=== PATIENT | female | born 1940 | race Caucasian/White ===

== ENCOUNTER 2023-01-01 19:03 | Inpatient (IN) | payer MEDICARE ==
[~2023-01-01] VITALS: Ht 154.9 cm; Wt 53.6 kg
[2023-01-01] MEDS ORDERED: VANCOMYCIN IV 1,000 MG in IV DEXTROSE 5% 250 ML IV ONE (19:30)
[2023-01-01] MEDS ORDERED: CEFTRIAXONE 1 G in IV DEXTROSE 5% 50 ML IV ONE (19:30)
[2023-01-01] MEDS ORDERED: IV NORMAL SALINE 500 ML BAG IV ONE (19:30)
[2023-01-01] MEDS ORDERED: PHOS250T5 PO (19:35)
[2023-01-01] MEDS ORDERED: DICL1KIT14 TP (19:35)
[2023-01-01] MEDS ORDERED: DOCU100T2 PO (19:35)
[2023-01-01] MEDS ORDERED: GABA-536 PO (19:35)
[2023-01-01] MEDS ORDERED: MELA5TAB PO (19:35)
[2023-01-01] MEDS ORDERED: LOPE2TAB25 PO (19:35)
[2023-01-01] MEDS ORDERED: CEFTRIAXONE /D5W 50ML IVPB **ER PYXIS IV ONE (19:35)
[2023-01-01] MEDS ORDERED: ACET-2605 PO (19:35)
[2023-01-01] MEDS ORDERED: BIOT5TAB PO (19:35)
[2023-01-01] MEDS ORDERED: EZET10TA15 PO (19:35)
[2023-01-01] MEDS ORDERED: ONDA4TAB5 PO (19:35)
[2023-01-01] MEDS ORDERED: ACYC400T19 PO (19:35)
[2023-01-01] MEDS ORDERED: ASPI-833 PO (19:35)
[2023-01-01] MEDS ORDERED: BISA10SU61 RC (19:35)
[2023-01-01] MEDS ORDERED: GUAI100S69 PO (19:35)
[2023-01-01] MEDS ORDERED: CAPS1ADH8 TP (19:35)
[2023-01-01] MEDS ORDERED: MAGN400O6 PO (19:35)
[2023-01-01] MEDS ORDERED: AMAN100T PO (19:35)
[2023-01-01] MEDS ORDERED: CHOL500062 PO (19:35)
[2023-01-01] MEDS ORDERED: APIX5TAB PO (19:35)
[2023-01-01] MEDS ORDERED: PANT40TA49 PO (19:35)
[2023-01-01] MEDS ORDERED: VANCOMYCIN IV 200 ML ONE (19:35)
[2023-01-01 20:33] LABS: MEAN CORPUSCULAR HEMOGLOBIN 31.6 uug (24.7-32.8); MEAN CORPUSCULAR VOLUME 96.4 fL (75.5-95.3); PLATELET COUNT (AUTO) 252 K/uL (179-408)
[2023-01-01 20:41] LABS: CARBON DIOXIDE 28 mmol/L (21-32); CHLORIDE 100 mmol/L (98-107); GLUCOSE 104 mg/dL (74-106); UREA NITROGEN, BLOOD 16 mg/dL (7-18)
[2023-01-01 20:53] LABS: ALANINE AMINOTRANSFERASE 27 U/L (14-59); ALKALINE PHOSPHATASE 85 U/L (50-136); ASPARTATE AMINOTRANSFERASE 6 U/L (15-37); BILIRUBIN,DIRECT 0.1 mg/dL (0.0-0.2); BILIRUBIN,TOTAL 0.3 mg/dL (0.2-1.0); TOTAL PROTEIN, SERUM 8.6 g/dL (6.4-8.2)
[2023-01-01 21:36] LABS: *BILIRUBIN,URIN NEGATIVE (NEGATIVE); *BLOOD, URINE 2+ (NEGATIVE); *CLARITY,URINE SLIGHTLY CLOUDY (CLEAR); *COLOR,URINE YELLOW (YELLOW); *KETONES,URINE NEGATIVE (NEGATIVE); *UROBILINOGEN,URINE 0.2 E.U./dl (NORMAL); LEUKOCYTE ESTERASE ,URINE 2+ (NEGATIVE); NITRITE, URINE NEGATIVE (NEGATIVE); UGLUCOSE NEGATIVE (NEGATIVE)
[2023-01-01 22:01] LABS: BACTERIA,URINE MODERATE /HPF (NONE SEEN); WBC,URINE 50-80 /HPF (0-3)
[2023-01-01 22:02] LABS: SQUAMOUS EPITHELIAL CELL,UR FEW /HPF (NONE SEEN)
--- NOTE | 2023-01-01 22:22 | NUR ---
Called for panel call. Dr. Kim investigation specialist.
--- NOTE | 2023-01-01 23:50 | NUR ---
Called third floor and gave report to Ivette MUELLER.
[2023-01-02] MEDS ORDERED: ACETAMINOPHEN 325 MG TABLET PO PRN (00:45)
[2023-01-02] MEDS ORDERED: MORPHINE SULFATE 2 MG/1 ML DISP.SYRIN IV PRN (00:45)
[2023-01-02] MEDS ORDERED: ONDANSETRON 4 MG/2 ML VIAL IV PRN (00:45)
--- NOTE | 2023-01-02 01:00 | NUR ---
RECEIVED PATIENT VIA GURNEY FROM ER. UPON ARRIVAL TO FLOOR, PATIENT IS ALERT TO NAME AND KNOWS SHE IS IN THE HOSPITAL, BUT UNABLE TO GIVE DATE OR TIME. PATIENT IS PASSIVE WHEN OTHER QUESTIONS ARE ASKED. NO S/S OF ANY PAIN OR DISCOMFORT. NO RESP. DISTRESS NOTED. VS WNL. HEPLOCK INTACT AND PATENT, NOTED TO LEFT WRIST. OPEN WOUND NOTED TO RIGHT LOWER BACK. REPOSITIONED TO SIDE. PATIENT MADE COMFORTABLE IN BED. CALL LIGHT IN REACH. ALL NEEDS ATTENDED. WILL CONTINUE TO MONITOR AND ASSESS.
--- NOTE | 2023-01-02 01:12 | NUR ---
Transfered patient to third floor via gurney with belongings. AMI Steele made aware of patient's arrival.
--- NOTE | 2023-01-02 01:15 | NUR ---
PATIENT PLACED ON TELE, SR.
[2023-01-02 01:16] VITALS: BP 131/67
[2023-01-02 04:00] VITALS: BP 152/74
[2023-01-02] MEDS: PANTOPRAZOLE SODIUM 40 MG TABLET.DR PO SCH (06:11)
--- NOTE | 2023-01-02 06:12 | NUR ---
PATIENT ASLEEP IN BED. SLEPT WELL THROUGHOUT THE NIGHT. ON TELE SR.
[2023-01-02 06:45] LABS: MEAN CORPUSCULAR HEMOGLOBIN 31.3 uug (24.7-32.8); MEAN CORPUSCULAR VOLUME 96.1 fL (75.5-95.3); PLATELET COUNT (AUTO) 225 K/uL (179-408)
[2023-01-02] MEDS ORDERED: MAGNESIUM HYDROXIDE 30 ML LIQUID UDC PO PRN (07:00)
[2023-01-02 07:02] LABS: THYROID STIMULATING HORMONE 1.577 mIU/mL (0.358-3.740)
[2023-01-02 07:18] LABS: BILIRUBIN,TOTAL 0.2 mg/dL (0.2-1.0); CREATININE 0.9 mg/dL (0.6-1.3); MAGNESIUM 2.1 mg/dL (1.8-2.4); PHOSPHOROUS 3.2 mg/dL (2.5-4.9); POTASSIUM 3.7 mmol/L (3.5-5.1); TOTAL PROTEIN, SERUM 7.3 g/dL (6.4-8.2)
[2023-01-02] MEDS ORDERED: BIOTIN PO SCH (09:00)
[2023-01-02] MEDS: AMANTADINE HCL 100 MG CAPSULE PO SCH ×2 (09:34→18:02)
[2023-01-02] MEDS: CHOLECALCIFEROL 1,000 UNIT TABLET PO SCH (09:34)
[2023-01-02 11:53] VITALS: BP 152/63
[2023-01-02] MEDS ORDERED: GUAIFENESIN/DEXTROMETHORPHAN 5 ML UDC PO PRN (12:15)
--- NOTE | 2023-01-02 12:40 | NUR ---
WOUND CARE CONSULT: PT PRESENTS WITH RT UPPER BUTTOCK WOUND WITH REDNESS AND SMALL AMOUNT OF SEROPURULENT DRAINAGE, NO ODOR, PRESENT ON ADMISSION. RECOMMENDATIONS MADE FOR SKIN PROTECTION AND WOUND CARE UNTIL SEEN BY SURGICAL TEAM. DISCUSSED WITH NURSING STAFF. MD IN AGREEMENT WITH PLAN OF CARE.
[2023-01-02] MEDS: SODIUM HYPOCHLORITE 0.125% (QUARTER STRENGTH) 473 ML BOTTLE TP SCH (13:46)
[2023-01-02 15:39] VITALS: BP 161/68
[2023-01-02] MEDS: GLUCERNA SHAKE 237 ML CAN PO SCH (17:00)
--- NOTE | 2023-01-02 18:47 | NUR ---
pt alert and oriented. confused at times. in no acute distress noted. bedbound. right upper buttocks wound noted. wound care nurse consulted. new wound tx was ordered. RA saturating 96-97%. all needs attended. safety measure in placed.
[2023-01-02 18:54] VITALS: BP 143/91
--- NOTE | 2023-01-02 19:30 | NUR ---
Received patient in bed alert awake, able to make some needs known. tele monitor sinus rhythm at this time, complain of mild pain on left wrist IV site, ice pack place on site with help, BP elevated will medicate as ordered, cont to monitor.
[2023-01-02 20:16] VITALS: BP 155/61
[2023-01-02] MEDS: CEFTRIAXONE 1 G in IV DEXTROSE 5% 50 ML IV SCH (20:33)
[2023-01-02] MEDS: hydrALAZINE HCL 25 MG TABLET PO PRN (20:40)
[2023-01-02] MEDS: VANCOMYCIN IV 1,000 MG in IV DEXTROSE 5% 250 ML IV SCH (21:09)
[2023-01-03 00:12] VITALS: BP 122/53
[2023-01-03 04:20] VITALS: BP 159/68
--- NOTE | 2023-01-03 05:16 | NUR ---
Patient awake, no sob no chest pain, tele monitor sinus rhythm, no complain of pain at this time, patient iv line pulled out but accident, patient hard stick will get an order for midline in Am. cont to monitor.
[2023-01-03] MEDS: hydrALAZINE HCL 25 MG TABLET PO PRN ×2 (05:43→17:17)
[2023-01-03] MEDS: PANTOPRAZOLE SODIUM 40 MG TABLET.DR PO SCH (06:16)
--- NOTE | 2023-01-03 07:30 | NUR ---
pt is awake and confused and cooperative. No IV present at this time. I will follow up with attending to get a midline order for the patient. Patient is NSR on the monitor and her vital signs are stable.
[2023-01-03 08:00] VITALS: BP 138/71
[2023-01-03] MEDS: GLUCERNA SHAKE 237 ML CAN PO SCH ×2 (08:16→17:16)
[2023-01-03] MEDS: CHOLECALCIFEROL 1,000 UNIT TABLET PO SCH (08:16)
[2023-01-03] MEDS: AMANTADINE HCL 100 MG CAPSULE PO SCH ×2 (08:16→17:15)
[2023-01-03] MEDS: PROTEIN SUPPLEMENT (PROSTAT) 30 ML LIQUID PO SCH (08:17)
[2023-01-03] MEDS: SODIUM HYPOCHLORITE 0.125% (QUARTER STRENGTH) 473 ML BOTTLE TP SCH (08:18)
--- NOTE | 2023-01-03 09:30 | NUR ---
Dr Wolf notified about pt's HR in the 130s to low 140s. Medication order received.
[2023-01-03] MEDS ORDERED: LORAZEPAM 0.5 MG TABLET PO PRN (10:00)
[2023-01-03] MEDS ORDERED: GUAIFENESIN/DEXTROMETHORPHAN 5 ML UDC PO PRN (11:15)
[2023-01-03 11:44] VITALS: BP 139/74
[2023-01-03 16:31] VITALS: BP 154/84
[2023-01-03 19:52] VITALS: BP 142/81
[2023-01-03] MEDS: CEFTRIAXONE 1 G in IV DEXTROSE 5% 50 ML IV SCH (20:22)
[2023-01-03] MEDS: VANCOMYCIN IV 1,000 MG in IV DEXTROSE 5% 250 ML IV SCH (21:02)
[2023-01-04 00:01] VITALS: BP 144/78
[2023-01-04 04:20] VITALS: BP 141/74
--- NOTE | 2023-01-04 04:57 | NUR ---
Calm and comfortable. NSR to Sinus Tachy on Tele with the highest HR of 120s. No acute distress noted. IV intact and patent. All medications given as ordered. No adverse reaction noted from antibiotics. Wound dressing done. Kept clean and dry. All needs attended to and met. Safety precautions maintained.
[2023-01-04] MEDS: PANTOPRAZOLE SODIUM 40 MG TABLET.DR PO SCH (06:06)
[2023-01-04 07:15] LABS: HEMATOCRIT 39.1 % (31.2-41.9); MEAN CORPUSCULAR HEMOGLOBIN 31.4 uug (24.7-32.8); MEAN CORPUSCULAR VOLUME 95.2 fL (75.5-95.3); PLATELET COUNT (AUTO) 252 K/uL (179-408)
[2023-01-04 07:28] LABS: CREATININE 0.8 mg/dL (0.6-1.3); MAGNESIUM 1.7 mg/dL (1.8-2.4); PHOSPHOROUS 3.8 mg/dL (2.5-4.9); POTASSIUM 3.6 mmol/L (3.5-5.1)
[2023-01-04] MEDS: AMANTADINE HCL 100 MG CAPSULE PO SCH ×2 (08:11→17:26)
[2023-01-04] MEDS: PROTEIN SUPPLEMENT (PROSTAT) 30 ML LIQUID PO SCH (08:11)
[2023-01-04] MEDS: CHOLECALCIFEROL 1,000 UNIT TABLET PO SCH (08:11)
[2023-01-04] MEDS: SODIUM HYPOCHLORITE 0.125% (QUARTER STRENGTH) 473 ML BOTTLE TP SCH (08:12)
[2023-01-04] MEDS: GLUCERNA SHAKE 237 ML CAN PO SCH ×2 (08:12→17:26)
--- NOTE | 2023-01-04 10:15 | NUR ---
Just finished speaking with the patients daughter and she informed me that a table mate that she eats with at the assisted living facility was diagnosed with Covid. I have informed Dr Wolf and he ordered a rapid covid test which I have sent to the lab and awaiting results.
[2023-01-04 12:00] VITALS: BP 147/69
[2023-01-04] MEDS ORDERED: MAGNESIUM OXIDE 400 MG TABLET PO ONE (12:00)
[2023-01-04] MEDS: METOPROLOL TARTRATE 25 MG TABLET PO SCH ×2 (12:56→20:11)
[2023-01-04 16:09] VITALS: BP 136/71
[2023-01-04 20:00] VITALS: BP 136/65
[2023-01-04] MEDS: CEFTRIAXONE 1 G in IV DEXTROSE 5% 50 ML IV SCH (20:58)
[2023-01-04] MEDS: VANCOMYCIN IV 1,000 MG in IV DEXTROSE 5% 250 ML IV SCH (21:01)
[2023-01-05 04:00] VITALS: BP 122/81
[2023-01-05] MEDS: PANTOPRAZOLE SODIUM 40 MG TABLET.DR PO SCH (06:31)
[2023-01-05 06:35] LABS: HEMATOCRIT 38.7 % (31.2-41.9); MEAN CORPUSCULAR HEMOGLOBIN 31.3 uug (24.7-32.8); PLATELET COUNT (AUTO) 249 K/uL (179-408)
[2023-01-05 06:41] LABS: ALKALINE PHOSPHATASE 68 U/L (50-136); ASPARTATE AMINOTRANSFERASE < 5 U/L (15-37); BILIRUBIN,TOTAL 0.4 mg/dL (0.2-1.0); CARBON DIOXIDE 27 mmol/L (21-32); CHLORIDE 100 mmol/L (98-107); CREATININE 0.9 mg/dL (0.6-1.3); GLUCOSE 101 mg/dL (74-106); PHOSPHOROUS 3.9 mg/dL (2.5-4.9); POTASSIUM 3.6 mmol/L (3.5-5.1); TOTAL PROTEIN, SERUM 7.5 g/dL (6.4-8.2); UREA NITROGEN, BLOOD 13 mg/dL (7-18)
[2023-01-05 07:06] LABS: ALANINE AMINOTRANSFERASE 25 U/L (14-59); MAGNESIUM 2.2 mg/dL (1.8-2.4)
[2023-01-05 08:00] VITALS: BP 135/69
[2023-01-05] MEDS: CHOLECALCIFEROL 1,000 UNIT TABLET PO SCH (08:55)
[2023-01-05] MEDS: AMANTADINE HCL 100 MG CAPSULE PO SCH (08:55)
[2023-01-05] MEDS: METOPROLOL TARTRATE 25 MG TABLET PO SCH (08:56)
[2023-01-05] MEDS: GLUCERNA SHAKE 237 ML CAN PO SCH (08:58)
[2023-01-05] MEDS: PROTEIN SUPPLEMENT (PROSTAT) 30 ML LIQUID PO SCH (08:58)
[2023-01-05] MEDS: SODIUM HYPOCHLORITE 0.125% (QUARTER STRENGTH) 473 ML BOTTLE TP SCH (08:59)
[2023-01-05 11:33] VITALS: BP 137/67
[2023-01-05] MEDS ORDERED: CYANOCOBALAMIN 1000 MCG/ML VIAL IM ONE (12:00)
--- NOTE | 2023-01-05 12:36 | NUR ---
WOUND CARE CONSULT/FOLLOW UP: PT SEEN FOR RE-EVALUATION OF RT UPPER BUTTOCK WOUND WHICH WAS NOTED TO BE PRESENT ON ADMISSION. WOUND IS NOT ON A BONY AREA. GRANULATION TISSUE NOTED WITH SEROSANGUINOUS DRAINAGE, NO ODOR. RECOMMEND SURGICAL CONSULT. DR BARCLAY WAS CALLED. RECOMMENDATIONS MADE FOR SKIN PROTECTION AND WOUND CARE. DISCUSSED WITH NURSING STAFF. IN AGREEMENT WITH PLAN OF CARE. Addendum: 01/05/23 at 1240 by MILTON WHELAN RN WOUND TREATMENT ORDERS UPDATED AND DISCUSSED WITH NURSING STAFF.
[2023-01-05] MEDS ORDERED: SODI473S8 TP (15:03)
[2023-01-05] MEDS ORDERED: NUT.237L36 PO (15:03)
[2023-01-05] MEDS ORDERED: ASCO500C18 PO (15:03)
[2023-01-05] MEDS ORDERED: GUAI5SYR PO (15:03)
[2023-01-05] MEDS ORDERED: ACET325T53 PO (15:03)
[2023-01-05] MEDS ORDERED: METO25TA6 PO (15:03)
[2023-01-05] MEDS ORDERED: PROT30LI PO (15:03)
[2023-01-05] MEDS ORDERED: CYAN500T9 PO (15:03)
[2023-01-05] MEDS ORDERED: MAGN400O6 PO (15:03)
[2023-01-05] MEDS ORDERED: ZINC220T4 PO (15:03)
[2023-01-05] MEDS ORDERED: LORA0.5T48 PO (15:03)
[2023-01-05] MEDS ORDERED: NITR100C11 PO (15:03)
[2023-01-05 16:38] VITALS: BP 143/75
== END 2023-01-05 17:10 | DRG 689 ==
LOC: ER 19:06 → TELE3 23:00 → MEDSURG3 01-04 11:10
PROVIDERS: ADMIT Internal Medicine; ATTEND Internal Medicine
PROC: 05HB33Z Insertion of Infusion Device into Right Basilic Vein, Percutaneous Approach (ICD-10-PCS; principal; 2023-01-03)
DX: N39.0 Urinary tract infection, site not specified (principal); G92.8 Other toxic encephalopathy; L89.313 Pressure ulcer of right buttock, stage 3; C90.00 Multiple myeloma not having achieved remission; D68.59 Other primary thrombophilia; G91.2 (Idiopathic) normal pressure hydrocephalus; R00.0 Tachycardia, unspecified; J40 Bronchitis, not specified as acute or chronic; Z20.822 Contact with and (suspected) exposure to COVID-19; D75.89 Other specified diseases of blood and blood-forming organs; E53.8 Deficiency of other specified B group vitamins; Z79.01 Long term (current) use of anticoagulants; G20 Parkinson's disease; F02.A0 Dementia in other diseases classified elsewhere, mild, without behavioral disturbance, psychotic disturbance, mood disturbance, and anxiety; Z98.42 Cataract extraction status, left eye; Z98.41 Cataract extraction status, right eye; Z90.710 Acquired absence of both cervix and uterus; Z90.49 Acquired absence of other specified parts of digestive tract; Z74.09 Other reduced mobility; Z88.0 Allergy status to penicillin; Z98.890 Other specified postprocedural states; M19.90 Unspecified osteoarthritis, unspecified site; I48.91 Unspecified atrial fibrillation
CPT/HCPCS: 36415; 70450; 71045; 83550; 83605; 83735; 84100; 84443; 84484; 85025; 85730; 87040; 93005; A6209; C1758; G0378; J0696; J3370; J3420; J7040; J7050

== ENCOUNTER 2023-07-24 16:16 | Inpatient (IN) | payer MEDICARE ==
[~2023-07-24] VITALS: Ht 154.9 cm; Wt 59.0 kg
[~2023-07-24 16:16] MED LIST: ACET325T53 PO; AMAN100T PO; ASCO500C18 PO; BIOT5TAB PO; CYAN500T9 PO; GUAI5SYR PO; LORA0.5T48 PO; MAGN400O6 PO; MELA5TAB PO; METO25TA6 PO; NITR100C11 PO; NUT.237L36 PO; PANT40TA49 PO; PROT30LI PO; SODI473S8 TP
[2023-07-24] MEDS ORDERED: IV NORMAL SALINE 1000 ML BAG IV ONE (16:45)
[2023-07-24] MEDS ORDERED: levoFLOXacin 750MG/D5W 150 ML IV ONE ×2 (16:45→17:06)
[2023-07-24] MEDS ORDERED: GENTAMICIN SULFATE 80 MG/2 ML VIAL IV ONE (17:00)
[2023-07-24 17:07] LABS: EOSINOPHILS # (AUTO) 0.5 K/uL (0.0-0.7); EOSINOPHILS % (AUTO) 7.9 % (0.0-7.0); HEMATOCRIT 36.5 % (31.2-41.9); HEMOGLOBIN 12.2 g/dL (10.9-14.3); LYMPHOCYTES # (AUTO) 2.1 K/uL (0.8-4.8); LYMPHOCYTES % (AUTO) 33.3 % (20.5-51.5); MEAN CORPUSCULAR HEMOGLOBIN 31.9 uug (24.7-32.8); MEAN CORPUSCULAR HGB CONC 33 g/dL (32.3-35.6); MEAN CORPUSCULAR VOLUME 95.8 fL (75.5-95.3); MONOCYTES # (AUTO) 1.2 K/uL (0.1-1.30); MONOCYTES % (AUTO) 19.3 % (0.0-11.0); NEUTROPHILS # (AUTO) 2.4 K/uL (1.8-8.9); NEUTROPHILS % (AUTO) 39.5 % (38.5-71.5); PLATELET COUNT (AUTO) 189 K/uL (179-408); RED BLOOD CELL COUNT(AUTO) 3.81 MIL/uL (3.63-4.92); RED CELL DISTRIBUTION WIDTH 14.9 % (12.3-17.7); WHITE BLOOD COUNT (AUTO) 6.2 K/uL (3.8-11.8)
[2023-07-24 17:09] LABS: DIFFERENTIAL COMMENT 1
[2023-07-24 17:22] LABS: ALANINE AMINOTRANSFERASE 35 U/L (14-59); ALBUMIN 3.1 g/dL (3.4-5.0); ALKALINE PHOSPHATASE 63 U/L (50-136); ASPARTATE AMINOTRANSFERASE 10 U/L (15-37); BILIRUBIN,DIRECT < 0.1 mg/dL (0.0-0.2); BILIRUBIN,TOTAL 0.3 mg/dL (0.2-1.0); CALCIUM 9.2 mg/dL (8.5-10.1); CARBON DIOXIDE 26 mmol/L (21-32); CHLORIDE 102 mmol/L (98-107); CREATININE 1.2 mg/dL (0.6-1.3); GLUCOSE 95 mg/dL (74-106); POTASSIUM 4.2 mmol/L (3.5-5.1); SODIUM SERUM 138 mmol/L (136-145); TOTAL PROTEIN, SERUM 7.8 g/dL (6.4-8.2); UREA NITROGEN, BLOOD 26 mg/dL (7-18)
[2023-07-24] MEDS ORDERED: MAGNESIUM HYDROXIDE 30 ML LIQUID UDC PO PRN (18:15)
[2023-07-24] MEDS ORDERED: ONDANSETRON 4 MG/2 ML VIAL IV PRN (18:15)
[2023-07-24] MEDS ORDERED: HYDROCODONE/APAP 5-325MG TABLET PO PRN (18:15)
[2023-07-24] MEDS ORDERED: MORPHINE SULFATE 2 MG/1 ML DISP.SYRIN IV PRN (18:15)
[2023-07-24] MEDS ORDERED: REMEDY ESSENTIAL ZINC PASTE 113 GM TP PRN (18:15)
[2023-07-24 18:21] LABS: *BILIRUBIN,URIN NEGATIVE (NEGATIVE); *BLOOD, URINE 1+ (NEGATIVE); *CLARITY,URINE CLEAR (CLEAR); *COLOR,URINE YELLOW (YELLOW); *KETONES,URINE NEGATIVE (NEGATIVE); *PROTEIN,URINE NEGATIVE (NEGATIVE); *UROBILINOGEN,URINE 0.2 E.U./dl (NORMAL); LEUKOCYTE ESTERASE ,URINE 3+ (NEGATIVE); NITRITE, URINE NEGATIVE (NEGATIVE); UGLUCOSE NEGATIVE (NEGATIVE)
[2023-07-24 19:21] LABS: BACTERIA,URINE MODERATE /HPF (NONE SEEN); RBC,URINE 0-3 /HPF (0-3); WBC,URINE TNTC /HPF (0-3)
[2023-07-24] MEDS ORDERED: GENTAMICIN SULFATE 80 MG/2 ML VIAL ONE (20:43)
[2023-07-24 20:47] LABS: BAND % (MANUAL) 4 % (0-10); LYMPHOCYTES % (MANUAL) 30 % (20-40); NEUTROPHILS % (MANUAL) 42 % (42-75)
[2023-07-24 20:48] LABS: EOSINOPHILS % (MANUAL) 8 % (0-8); MONOCYTES % (MANUAL) 16 % (2-10); PLATELET ESTIMATE ADEQUATE
[2023-07-24] MEDS ORDERED: MEROPENEM 0.5 G in IV NORMAL SALINE 50 ML IV SCH (23:00)
[2023-07-24 23:07] VITALS: BP 125/63; TEMP 98.1; O2SAT 100
[2023-07-25] MEDS ORDERED: MEROPENEM 500 MG VIAL IV ONE ×2 (00:46)
[2023-07-25] MEDS: IV NS 1000 ML 1,000 ML IV PRN ×2 (01:55→20:53)
[2023-07-25 04:30] VITALS: BP 140/75; TEMP 98.1; O2SAT 100
[2023-07-25] MEDS: PANTOPRAZOLE SODIUM 40 MG TABLET.DR PO SCH (06:28)
[2023-07-25 09:01] LABS: CALCIUM 8.3 mg/dL (8.5-10.1); CARBON DIOXIDE 26 mmol/L (21-32); CHLORIDE 103 mmol/L (98-107); CREATININE 1.1 mg/dL (0.6-1.3); GLUCOSE 86 mg/dL (74-106); MAGNESIUM 2.1 mg/dL (1.8-2.4); PHOSPHOROUS 3.2 mg/dL (2.5-4.9); POTASSIUM 4.2 mmol/L (3.5-5.1); SODIUM SERUM 138 mmol/L (136-145); UREA NITROGEN, BLOOD 16 mg/dL (7-18)
[2023-07-25 09:30] LABS: BASOPHILS % (AUTO) 0.5 % (0.0-2.0); EOSINOPHILS # (AUTO) 0.1 K/uL (0.0-0.7); EOSINOPHILS % (AUTO) 2.2 % (0.0-7.0); HEMATOCRIT 34.9 % (31.2-41.9); HEMOGLOBIN 11.6 g/dL (10.9-14.3); LYMPHOCYTES % (AUTO) 18.9 % (20.5-51.5); MEAN CORPUSCULAR HEMOGLOBIN 31.8 uug (24.7-32.8); MEAN CORPUSCULAR HGB CONC 33 g/dL (32.3-35.6); MEAN CORPUSCULAR VOLUME 95.7 fL (75.5-95.3); MONOCYTES # (AUTO) 0.7 K/uL (0.1-1.30); MONOCYTES % (AUTO) 12.7 % (0.0-11.0); NEUTROPHILS # (AUTO) 3.5 K/uL (1.8-8.9); NEUTROPHILS % (AUTO) 65.7 % (38.5-71.5); PLATELET COUNT (AUTO) 170 K/uL (179-408); RED BLOOD CELL COUNT(AUTO) 3.65 MIL/uL (3.63-4.92); RED CELL DISTRIBUTION WIDTH 14.5 % (12.3-17.7); WHITE BLOOD COUNT (AUTO) 5.3 K/uL (3.8-11.8)
[2023-07-25 09:59] LABS: THYROID STIMULATING HORMONE 2.579 mIU/mL (0.358-3.740)
[2023-07-25 11:49] VITALS: BP 122/53; TEMP 97.9; O2SAT 99
[2023-07-25] MEDS ORDERED: MEROPENEM 0.5 G in IV NORMAL SALINE 50 ML IV SCH (15:00)
[2023-07-25] MEDS: MEROPENEM 500 MG in IV NORMAL SALINE 50 ML IV SCH (15:34)
[2023-07-25 15:49] VITALS: BP 120/63; TEMP 97.8; O2SAT 95
[2023-07-25 20:00] VITALS: BP 142/70; TEMP 98.5; O2SAT 93
[2023-07-26] MEDS: MEROPENEM 500 MG in IV NORMAL SALINE 50 ML IV SCH ×2 (02:59→14:02)
[2023-07-26 04:00] VITALS: BP 132/73; TEMP 98.1; O2SAT 95
[2023-07-26] MEDS: PANTOPRAZOLE SODIUM 40 MG TABLET.DR PO SCH (06:39)
[2023-07-26 07:19] LABS: BASOPHILS % (AUTO) 0.5 % (0.0-2.0); EOSINOPHILS # (AUTO) 0.1 K/uL (0.0-0.7); EOSINOPHILS % (AUTO) 1.9 % (0.0-7.0); HEMATOCRIT 35.2 % (31.2-41.9); HEMOGLOBIN 11.5 g/dL (10.9-14.3); LYMPHOCYTES # (AUTO) 1.3 K/uL (0.8-4.8); LYMPHOCYTES % (AUTO) 22.3 % (20.5-51.5); MEAN CORPUSCULAR HEMOGLOBIN 31.4 uug (24.7-32.8); MEAN CORPUSCULAR HGB CONC 33 g/dL (32.3-35.6); MEAN CORPUSCULAR VOLUME 95.9 fL (75.5-95.3); MONOCYTES # (AUTO) 0.7 K/uL (0.1-1.30); MONOCYTES % (AUTO) 11.9 % (0.0-11.0); NEUTROPHILS # (AUTO) 3.7 K/uL (1.8-8.9); NEUTROPHILS % (AUTO) 63.4 % (38.5-71.5); PLATELET COUNT (AUTO) 160 K/uL (179-408); RED BLOOD CELL COUNT(AUTO) 3.67 MIL/uL (3.63-4.92); RED CELL DISTRIBUTION WIDTH 14.4 % (12.3-17.7); WHITE BLOOD COUNT (AUTO) 5.8 K/uL (3.8-11.8)
[2023-07-26 07:24] LABS: DIFFERENTIAL COMMENT 1
[2023-07-26 07:31] LABS: CALCIUM 8.5 mg/dL (8.5-10.1); CREATININE 0.8 mg/dL (0.6-1.3); MAGNESIUM 2.1 mg/dL (1.8-2.4); PHOSPHOROUS 3.1 mg/dL (2.5-4.9); POTASSIUM 3.7 mmol/L (3.5-5.1)
[2023-07-26] MEDS: IV NS 1000 ML 1,000 ML IV PRN (10:34)
[2023-07-26 11:30] VITALS: BP 119/48; TEMP 97.8; O2SAT 95
[2023-07-26] MEDS ORDERED: ACYC-106 PO (15:48)
[2023-07-26] MEDS ORDERED: ACET325T53 PO (15:48)
[2023-07-26] MEDS ORDERED: ONDA4TAB11 SL (15:48)
[2023-07-26 16:11] VITALS: BP 150/74; TEMP 98.2; O2SAT 93
[2023-07-26 16:13] VITALS: BP 150/74; TEMP 98.2; O2SAT 93
[2023-07-26 19:50] VITALS: BP 138/78; TEMP 98.3; O2SAT 94
[2023-07-26] MEDS: ACETAMINOPHEN 325 MG TABLET PO PRN (21:42)
[2023-07-27] MEDS: MEROPENEM 500 MG in IV NORMAL SALINE 50 ML IV SCH ×2 (02:06→15:24)
[2023-07-27 06:00] VITALS: BP 144/68; TEMP 97.5; O2SAT 97
[2023-07-27] MEDS: PANTOPRAZOLE SODIUM 40 MG TABLET.DR PO SCH (06:20)
[2023-07-27] MEDS: IV NS 1000 ML 1,000 ML IV PRN ×2 (06:26→22:06)
[2023-07-27 11:00] VITALS: BP 137/67; TEMP 97.8; O2SAT 96
[2023-07-27 15:44] VITALS: BP 154/75; TEMP 98.2; O2SAT 96
[2023-07-27] MEDS: ACETAMINOPHEN 325 MG TABLET PO PRN (19:07)
[2023-07-27 20:00] VITALS: BP 149/82; TEMP 98.2; O2SAT 93
[2023-07-28] MEDS: MEROPENEM 500 MG in IV NORMAL SALINE 50 ML IV SCH ×2 (02:19→14:12)
[2023-07-28 04:00] VITALS: BP 145/70; TEMP 97.7; O2SAT 98
[2023-07-28] MEDS: ACETAMINOPHEN 325 MG TABLET PO PRN (04:20)
[2023-07-28] MEDS: PANTOPRAZOLE SODIUM 40 MG TABLET.DR PO SCH (06:05)
[2023-07-28 06:56] LABS: BASOPHILS % (AUTO) 0.4 % (0.0-2.0); EOSINOPHILS # (AUTO) 0.1 K/uL (0.0-0.7); EOSINOPHILS % (AUTO) 1.6 % (0.0-7.0); HEMATOCRIT 35.6 % (31.2-41.9); HEMOGLOBIN 11.8 g/dL (10.9-14.3); LYMPHOCYTES # (AUTO) 1.3 K/uL (0.8-4.8); LYMPHOCYTES % (AUTO) 21.6 % (20.5-51.5); MEAN CORPUSCULAR HEMOGLOBIN 31.8 uug (24.7-32.8); MEAN CORPUSCULAR HGB CONC 33 g/dL (32.3-35.6); MEAN CORPUSCULAR VOLUME 95.3 fL (75.5-95.3); MONOCYTES # (AUTO) 0.8 K/uL (0.1-1.30); MONOCYTES % (AUTO) 13.7 % (0.0-11.0); NEUTROPHILS # (AUTO) 3.9 K/uL (1.8-8.9); NEUTROPHILS % (AUTO) 62.7 % (38.5-71.5); PLATELET COUNT (AUTO) 176 K/uL (179-408); RED BLOOD CELL COUNT(AUTO) 3.73 MIL/uL (3.63-4.92); RED CELL DISTRIBUTION WIDTH 14.8 % (12.3-17.7); WHITE BLOOD COUNT (AUTO) 6.2 K/uL (3.8-11.8)
[2023-07-28 07:15] LABS: CALCIUM 8.5 mg/dL (8.5-10.1); CREATININE 0.9 mg/dL (0.6-1.3); MAGNESIUM 2.1 mg/dL (1.8-2.4); PHOSPHOROUS 2.9 mg/dL (2.5-4.9)
[2023-07-28 07:22] LABS: DIFFERENTIAL COMMENT 1
[2023-07-28] MEDS ORDERED: ERTA1VIA4 IM (11:17)
[2023-07-28 12:10] VITALS: BP 113/71; TEMP 97.6; O2SAT 95
== END 2023-07-28 15:00 | disposition home health service (06) | DRG 689 ==
LOC: ER 16:18 → MEDSURG3 22:26
PROVIDERS: ADMIT Nurse Practitioner Acute Care; ATTEND Nurse Practitioner Acute Care
DX: N39.0 Urinary tract infection, site not specified (principal); G92.8 Other toxic encephalopathy; Z16.24 Resistance to multiple antibiotics; I48.0 Paroxysmal atrial fibrillation; G20.A1 Parkinson's disease without dyskinesia, without mention of fluctuations; F02.A0 Dementia in other diseases classified elsewhere, mild, without behavioral disturbance, psychotic disturbance, mood disturbance, and anxiety; I10 Essential (primary) hypertension; K21.9 Gastro-esophageal reflux disease without esophagitis; B95.2 Enterococcus as the cause of diseases classified elsewhere; Z79.01 Long term (current) use of anticoagulants; Z90.710 Acquired absence of both cervix and uterus; Z88.0 Allergy status to penicillin; Z87.440 Personal history of urinary (tract) infections; Z85.79 Personal history of other malignant neoplasms of lymphoid, hematopoietic and related tissues; Z79.899 Other long term (current) drug therapy; Z74.09 Other reduced mobility
CPT/HCPCS: 36415; 70030-TC; 71045; 83605; 83735; 84100; 84443; 84484; 85025; 85730; 87040; 93005; A4606; A4663; G0378; J1580; J1956; J2185; J7040